=== PATIENT | female | born 1985 | race Two or more races ===

== ENCOUNTER → 2017-07-05 10:32 | Outpatient (CLI) | payer OTHER | END | disposition home or self-care (01) | LOC: RX STUDY 10:15 | DX: N84.0 Polyp of corpus uteri (principal) ==

== ENCOUNTER 2017-07-05 16:58 | Outpatient (CLI) | payer OTHER | END 2017-07-05 17:00 | disposition home or self-care (01) | LOC: SONOGRAMA 16:58 | DX: N84.2 Polyp of vagina (principal) ==

== ENCOUNTER 2019-09-11 13:40 | Inpatient (IN) | payer OTHER ==
[~2019-09-11] VITALS: Ht 154.9 cm; Wt 3.6 kg
[~2019-09-11 13:40] MED LIST: CLONAZEPAM0.5 MG PO
[2019-09-26] MEDS ORDERED: PRENATAL TABLE1 EAC3 PO (20:18)
[2019-09-30] MEDS ORDERED: OXYC1TAB9 PO (07:51)
== END 2019-09-30 11:51 | disposition home or self-care (01) | DRG 788 ==
LOC: OB/GYN → LDR 09-26 19:54 → O/R 09-27 08:29 → OB/GYN 09-27 11:11
PROVIDERS: ADMIT Obstetrics & Gynecology; ATTEND Obstetrics & Gynecology
PROC: 4A1HXCZ Monitoring of Products of Conception, Cardiac Rate, External Approach (ICD-10-PCS; 2019-09-26)
PROC: 10D00Z1 Extraction of Products of Conception, Low, Open Approach (ICD-10-PCS; principal; 2019-09-27 07:00)
DX: O64.8XX0 Obstructed labor due to other malposition and malpresentation, not applicable or unspecified (principal); Z3A.39 39 weeks gestation of pregnancy; Z37.0 Single live birth

== ENCOUNTER 2019-09-18 09:51 | Outpatient (CLI) | payer OTHER | END 2019-09-18 10:59 | disposition home or self-care (01) | LOC: NST 09:51 | DX: Z34.83 Encounter for supervision of other normal pregnancy, third trimester (principal) ==

== ENCOUNTER 2019-09-23 10:24 | Outpatient (CLI) | payer OTHER | END 2019-09-23 11:24 | disposition home or self-care (01) | LOC: NST 10:24 | DX: Z34.83 Encounter for supervision of other normal pregnancy, third trimester (principal) ==

== ENCOUNTER 2021-09-05 08:30 | Inpatient (IN) | payer OTHER ==
[~2021-09-05] VITALS: Ht 154.9 cm; Wt 3.2 kg
[~2021-09-05 08:30] MED LIST changes: +OXYC1TAB9 PO; +PRENATAL TABLE1 EAC3 PO
[2021-09-08] MEDS ORDERED: FAMOTIDINE20 MG (08:22)
== END 2021-09-09 11:37 | disposition home or self-care (01) | DRG 788 ==
LOC: OB/GYN 09-07 07:00 → O/R 09-07 11:22 → SURG-SUITE 09-07 11:22
PROVIDERS: ADMIT Obstetrics & Gynecology; ATTEND Obstetrics & Gynecology
PROC: 4A1HXCZ Monitoring of Products of Conception, Cardiac Rate, External Approach (ICD-10-PCS; 2021-09-07)
PROC: 10D00Z1 Extraction of Products of Conception, Low, Open Approach (ICD-10-PCS; principal; 2021-09-07 07:00)
DX: O34.211 Maternal care for low transverse scar from previous cesarean delivery (principal); Z3A.39 39 weeks gestation of pregnancy; Z37.0 Single live birth; Z20.822 Contact with and (suspected) exposure to COVID-19